=== PATIENT | male | born 1980 | race Caucasian/White ===

== ENCOUNTER → 2023-10-05 08:11 | Outpatient (REF) | payer OTHER, SELFPAY | LOC: HWRAD 08:11 | PROVIDERS: ATTENDING PHYSICIAN Family Medicine | DX: Z01.89 Encounter for other specified special examinations (principal); R31.29 Other microscopic hematuria; Z87.442 Personal history of urinary calculi | CPT/HCPCS: 74176 ==

== ENCOUNTER 2024-08-14 06:16 | Day surgery (SDC) | payer OTHER, SELFPAY | END 2024-08-14 15:33 | disposition home or self-care (01) | LOC: GI 06:16 | PROVIDERS: ATTENDING PHYSICIAN Internal Medicine | DX: Z12.11 Encounter for screening for malignant neoplasm of colon (principal); K64.8 Other hemorrhoids; D12.3 Benign neoplasm of transverse colon; D12.7 Benign neoplasm of rectosigmoid junction | CPT/HCPCS: 45385; 45380; 88305 ==